=== PATIENT | male | born 1975 | race Caucasian/White ===

== ENCOUNTER 2018-11-04 12:52 | Day surgery (SDC) | payer OTHER, BC ==
[2018-11-04] MEDS ORDERED: ceFAZolin 1GM INJ (J0690 PER 500MG) As Ordered (13:16)
[2018-11-04] MEDS ORDERED: ceFAZolin 2 GM/D5W 50 ML IV BAG (J0690 PER 500MG) As Ordered (13:16)
[2018-11-04] MEDS: GABAPENTIN 300 MG CAP PO ×2 (13:43→20:18)
[2018-11-04] MEDS: PERCOCET 5MG/325MG TAB PO ×2 (13:44→21:34)
[2018-11-04] MEDS: CelecoXIB 400 MG CAP PO (13:44)
[2018-11-04] MEDS: ceFAZolin SOD 1 GM in D5W MINI-BAG PLUS 50 ML IV (15:45)
[2018-11-04] MEDS ORDERED: fentaNYL 250 MCG/5 ML INJECTION (J3010) As Ordered (16:09)
[2018-11-04] MEDS ORDERED: GLYCOPYRROLATE INJ 0.2 MG/ML 2 ML VIAL As Ordered (16:09)
[2018-11-04] MEDS ORDERED: dexameTHASONE 4 MG/ML 1ML VIAL (J1100) As Ordered (16:09)
[2018-11-04] MEDS ORDERED: LIDOCAINE 2% INJ 100 MG/5 ML SDV (FOR ANES.) As Ordered (16:09)
[2018-11-04] MEDS ORDERED: METOCLOPRAMIDE INJ 10MG/2ML VIAL (J2765) As Ordered (16:10)
[2018-11-04] MEDS ORDERED: PROPOFOL 200 MG/20 ML VIAL As Ordered ×2 (16:10→17:14)
[2018-11-04] MEDS ORDERED: NEOSTIGMINE 10 MG/10 ML VIAL (J2710) As Ordered (16:10)
[2018-11-04] MEDS ORDERED: ONDANSETRON 4MG/2ML VIAL (J2405) As Ordered (16:10)
[2018-11-04] MEDS ORDERED: MIDAZOLAM INJ 2 MG/2 ML VIAL (J2250) As Ordered (16:10)
[2018-11-04] MEDS ORDERED: ROCURONIUM BROMIDE 50 MG/5 ML VIAL As Ordered (16:10)
[2018-11-04] MEDS: THROMBIN SOLN 20,000 UNITS KIT As Ordered (16:23)
[2018-11-04] MEDS: BUPIVACAINE/EPIN 0.5% 30 ML VIAL As Ordered (16:23)
[2018-11-04] MEDS: BACITRACIN PWD 50,000 UNITS VIAL As Ordered (16:23)
[2018-11-04] MEDS ORDERED: fentaNYL 100 MCG/2 ML INJECTION (J3010) As Ordered (17:13)
[2018-11-04] MEDS ORDERED: fentaNYL 100 MCG/2 ML INJECTION (J3010) IV (18:15)
[2018-11-04] MEDS ORDERED: METOCLOPRAMIDE INJ 10MG/2ML VIAL (J2765) IV (18:15)
[2018-11-04] MEDS ORDERED: LR 1,000 ML IV (18:15)
[2018-11-04] MEDS ORDERED: PERCOCET 5MG/325MG TAB PO ×2 (18:15)
[2018-11-04] MEDS ORDERED: ONDANSETRON 4MG/2ML VIAL (J2405) IV (18:15)
[2018-11-04] MEDS ORDERED: PROMETHAZINE INJ 25 MG/ML VIAL (J2550) IV (18:15)
[2018-11-04] MEDS ORDERED: MEPERIDINE INJ 25 MG/ML VIAL (J2175) IV (18:15)
[2018-11-04] MEDS ORDERED: D5W/LR 1,000 ML IV (18:15)
[2018-11-04] MEDS ORDERED: HYDROMORPHONE HCL 0.5 MG/ 0.5 ML SYRINGE (J1170 PER 1) IV (18:30)
[2018-11-04] MEDS ORDERED: ACETAMINOPHEN TAB 650MG DOSE (2X325MG) PO (18:30)
[2018-11-04] MEDS ORDERED: NORTRIPTYLINE 10 MG CAP PO (18:30)
[2018-11-05] MEDS: GABAPENTIN 300 MG CAP PO (09:07)
[2018-11-05] MEDS: CelecoXIB 400 MG CAP PO (09:07)
[2018-11-05] MEDS: PERCOCET 5MG/325MG TAB PO (10:29)
== END 2018-11-05 10:40 | disposition home or self-care (01) ==
LOC: M SDC 12:52 → M MS5PR 18:55
DX: M51.26 Other intervertebral disc displacement, lumbar region (principal); M47.26 Other spondylosis with radiculopathy, lumbar region; Z79.899 Other long term (current) drug therapy
CPT/HCPCS: 63030

== ENCOUNTER → 2019-01-13 | Outpatient (REF) | payer OTHER ==
[~2019-01-13] MED LIST: GABA-843 PO; IBUPOTC PO
[2019-01-13 17:39] LABS: INR 0.98; PROTHROMBIN TIME 13.1 SECONDS (12.1-14.4)
[2019-01-13 17:40] LABS: PARTIAL THROMBOPLASTIN TIME 28.6 SECONDS (25.4-37.6)
== END ==
LOC: M LABDRAW1 16:32
PROVIDERS: ATTEND Physical Medicine & Rehabilitation
DX: D69.1 Qualitative platelet defects (principal); Z79.01 Long term (current) use of anticoagulants

== ENCOUNTER → 2019-02-15 | Outpatient (REF) | payer OTHER ==
[2019-02-15 14:21] LABS: BLOOD UREA NITROGEN 33 MG/DL (7-18); CREATININE FOR GFR 1.08 MG/DL (0.70-1.30); GLOMERULAR FILTRATION RATE > 60.0 (>60)
== END ==
LOC: M LABDRAW1 12:54
PROVIDERS: ATTEND Physical Medicine & Rehabilitation
DX: M47.814 Spondylosis without myelopathy or radiculopathy, thoracic region (principal)

== ENCOUNTER 2019-05-11 11:18 | Day surgery (SDC) | payer OTHER ==
--- NOTE | 2019-05-02 17:05 | HPE ---
DATE OF ANTICIPATED ADMISSION: 05/11/2019 ATTENDING PHYSICIAN: Dr. Min Shetty CHIEF COMPLAINT: Low back pain with right lower extremity radiculopathy. HISTORY: The patient is a 43-year-old male with progressively worsening low back pain with right-sided lower extremity radiculopathy. The patient has failed to improve with conservative measures. He continues to have symptoms with weightbearing activities and activities of daily living. The patient has consented for an elective right L4-[address] Shetty for his continued symptoms. CURRENT MEDICATIONS: - gabapentin 600 mg twice daily - naproxen 500 mg twice daily ALLERGIES: There are no known drug allergies. CHRONIC MEDICAL CONDITIONS: None. PREVIOUS SURGERIES: Left knee arthroscopy. Oral maxillary surgery. Right L4-5 microdiscectomy. SOCIAL HISTORY: The patient does not use tobacco products and rarely uses alcohol. FAMILY HISTORY: Noncontributory. REVIEW OF SYSTEMS: The patient denies fevers, chills, nausea, vomiting or diarrhea. Denies chest pain, shortness of breath, lightheadedness, dizziness, headaches or abdominal pain. He denies any recent upper respiratory or urinary tract infection symptoms. He continues to have low back pain with right-sided radiculopathy with weightbearing activities and activities of daily living. PHYSICAL EXAMINATION: Well-nourished, well-developed male who appears to be in no apparent distress. He is alert, oriented and cooperative. Mood and affect are appropriate. Vital signs: Height 74 inches, weight 225.4 pounds, temperature 97.2, blood pressure 130/95, heart rate 76, respirations 16. Neck: Supple without lymphadenopathy. Heart: Regular rate and rhythm. Lungs: Clear to auscultation bilaterally. Abdomen: Soft, nontender to palpation. Bowel sounds are present. Musculoskeletal: Low back exhibits no gross abnormalities. There is no real tenderness to palpation. Straight leg raise on the right side is positive, but there are no focal motor deficits. He does appreciate light touch on both sides. Reflex absent at the ankle on the right and 1+ at the ankle on the left with trace reflexes at knees bilaterally. MRI from December 2018 reveals mild to moderate spondylosis of the lumbar spine. There is stable to moderate to large size disc protrusion at L4-5. This is status post right-sided laminectomy at the L4-5 level for decompression of moderate canal stenosis. There may be a small hematoma/seroma with likely hemosiderin. Elsewhere there is multilevel mild canal stenosis with disc bulges and mild neural foraminal narrowing. IMPRESSION: Recurrent disc herniation at L4-5 on the right side producing pain into the right lower extremity. PLAN: The patient has consented for an elective L4-[address] Shetty for his continued symptoms. The patient will stop taking his naproxen 5 days prior to surgery and understands he may take his gabapentin the morning of surgery with a small sip of water. DOMONIQUE
[~2019-05-11] VITALS: Ht 188 cm; Wt 99.7 kg
[~2019-05-11 11:18] MED LIST changes: +CelecoXIB (CeleBREX) 100 MG CAP PO ONE; +GABAPENTIN 300 MG CAP PO ONE; +LIDOCAINE 1% MDV 20ML VIAL SQ PRN; +LIDOCAINE 2% INJ 100 MG/5 ML SDV (FOR ANES.) As Ordered ONE; +LR 1,000 ML IV ONE; +MIDAZOLAM INJ 2 MG/2 ML VIAL (J2250) As Ordered ONE; +NAPR-885 PO; +PERCOCET 5MG/325MG TAB PO ONE; +PROPOFOL 200 MG/20 ML VIAL As Ordered ONE; +ROCURONIUM BROMIDE 50 MG/5 ML VIAL As Ordered ONE; +fentaNYL 250 MCG/5 ML INJECTION (J3010) As Ordered ONE
[2019-05-11] MEDS ORDERED: THROMBIN SOLN 20,000 UNITS KIT As Ordered ONE (12:17)
[2019-05-11] MEDS ORDERED: TRANEXAMIC ACID 100 MG/ML 10ML VIAL As Ordered ONE (12:17)
[2019-05-11] MEDS ORDERED: EPINEPHrine INJ 1 MG/ML 1ML AMP As Ordered ONE (12:18)
[2019-05-11] MEDS ORDERED: BUPIVACAINE HCL 0.25% 30 ML VIAL As Ordered ONE ×2 (12:18→16:41)
[2019-05-11] MEDS ORDERED: BUPIVACAINE HCL 0.5% 30 ML VIAL As Ordered ONE (12:18)
[2019-05-11] MEDS ORDERED: BACITRACIN PWD 50,000 UNITS VIAL As Ordered ONE (12:18)
[2019-05-11] MEDS ORDERED: BUPIVACAINE LIPOSOME/PF 1.3% 20ML VIAL (13.3MG/ML)(EXPAREL)(C9290 PER1MG) As Ordered ONE ×2 (12:18→16:41)
[2019-05-11] MEDS ORDERED: BUPIVACAINE/EPIN 0.5% 30 ML VIAL As Ordered ONE (13:42)
[2019-05-11] MEDS ORDERED: ceFAZolin 2 GM/D5W 50 ML IV BAG (J0690 PER 500MG) As Ordered ONE (14:01)
[2019-05-11] MEDS ORDERED: NEOSTIGMINE 10 MG/10 ML VIAL (J2710) As Ordered ONE (16:49)
[2019-05-11] MEDS ORDERED: GLYCOPYRROLATE INJ 0.2 MG/ML 2 ML VIAL As Ordered ONE (16:49)
[2019-05-11] MEDS ORDERED: ACETAMINOPHEN TAB 650MG DOSE (2X325MG) PO PRN (17:30)
[2019-05-11] MEDS ORDERED: PROMETHAZINE INJ 25 MG/ML VIAL (J2550) IV PRN (17:30)
[2019-05-11] MEDS ORDERED: METOCLOPRAMIDE INJ 10MG/2ML VIAL (J2765) IV PRN (17:30)
[2019-05-11] MEDS ORDERED: LR 1,000 ML IV SCH ×2 (17:30)
[2019-05-11] MEDS ORDERED: PERCOCET 5MG/325MG TAB PO PRN (17:30)
[2019-05-11] MEDS ORDERED: fentaNYL 100 MCG/2 ML INJECTION (J3010) IV PRN (17:30)
[2019-05-11] MEDS ORDERED: oxyCODONE 5MG TAB PO PRN (17:30)
[2019-05-11] MEDS ORDERED: HYDROMORPHONE HCL 0.5 MG/ 0.5 ML SYRINGE (J1170 PER 1) IV PRN ×2 (17:45)
[2019-05-11 18:33] VITALS: BP 147/67
--- NOTE | 2019-05-11 18:57 | REP ---
Clinical: Localizing for back surgery. Technique: Portable cross-table view of the lumbosacral spine. Findings: Probe of the up posterior approach at the L4-5 interspinous level. Electronically Signed by Kaden Mrar MD 05/11/2019 06:48 P
[2019-05-11 19:13] VITALS: BP 130/69
[2019-05-11] MEDS ORDERED: ONDANSETRON 4MG/2ML VIAL (J2405) IV PRN (19:45)
[2019-05-11 20:13] VITALS: BP 162/84
[2019-05-11] MEDS: GABAPENTIN 300 MG CAP PO SCH (20:31)
[2019-05-11 21:13] VITALS: BP 145/80
[2019-05-11 22:13] VITALS: BP 139/71
[2019-05-11 23:13] VITALS: BP 143/82
[2019-05-12] MEDS: PERCOCET 5MG/325MG TAB PO PRN ×2 (00:43→08:49)
[2019-05-12 02:00] VITALS: BP 134/79
[2019-05-12 06:00] VITALS: BP 107/65
[2019-05-12] MEDS: GABAPENTIN 300 MG CAP PO SCH (08:48)
[2019-05-12] MEDS ORDERED: METAMUCIL (PSYLLIUM) PACKET PO SCH (09:00)
[2019-05-12] MEDS ORDERED: CelecoXIB (CeleBREX) 100 MG CAP PO ONE (09:00)
[2019-05-12 10:00] VITALS: BP 113/89
--- NOTE | 2019-05-13 18:49 | RO ---
DATE OF PROCEDURE: 05/11/2019 PREOPERATIVE DIAGNOSIS: Recurrent disc herniation right side at L4-5. POSTOPERATIVE DIAGNOSIS: Recurrent disc herniation right side at L4-5. PROCEDURE PERFORMED: Right L4-L5 laminotomy and repeat/redo diskectomy at L4-5. Significantly increased difficulty and time associated with this procedure due to the need to carefully dissect away scar tissue, etc. SURGEON: Min Shetty MD CAR SCRUBBER: ABDOUL Blackburn ANESTHESIA: General. ESTIMATED BLOOD LOSS: Less than 40 ml replaced with crystalloid. COMPLICATIONS: None. INDICATIONS: Mr. Kolb is a 43-year-old male who had a microdiskectomy in October time frame for a large disk herniation. Despite removal of a considerable amount of disk material, the patient had a recurrence of symptoms and that has persisted and now elects for operative intervention. Consent reviewed in detail including a blanche discussion, the pathology involved, the procedure proposed, alternatives including doing nothing and risks including but not limited to pain, failure, need for more surgery, recurrence or some other problem. The patient agrees to proceed. OPERATIVE COURSE: Identified in holding area. Site and side verified. Brought to the operating room, positioned on the Cortes frame for exposure of the lumbar spine. Axillary rolls utilized, knee slightly flexed. I stood on the patient's right, Mr. Gandhi on the left side. He was prepped and draped in the usual fashion. Time-out accomplished. Next, the old incision was outlined with a marking pen, infiltrated with quarter Marcaine with epinephrine. New incision was approximately three fingerbreadths and extended a bit longer than the previous incision. Dissection continued through the scarred fatty tissues to the posterior lumbar fascia which was also scarred down. I reflected the posterior lumbar fascia off of the spinous processes of 4 and 5 to allow exposure of the 4-5 interspace. Lamina of 4 was identified. Lamina 5 was identified. 4-5 facet complexes identified. Next, I used sharp blade to further thin the some of the scar tissue that scarred down to the dura. Next, we brought in the operating microscope which was thoroughly draped at this time and I utilized the high speed bur to drill away L4 lamina at its inferior portion extending more superiorly, thinning it out so that it could be flipped away with a curette and from the thecal sac. The dissection continued. We took about 1.5 bur widths of the inferior facet, 4 on the right side as well as the superior facet of 5 and crossed the lamina 5. Next, I was able to carefully elevate scar tissue and the traversing nerve root and with some meticulous dissection exposed disk herniation using a Chambers-Jose. Disk material seemed to the subligamentous. I suspect some portions of the cartilaginous endplate present in it is relatively hard large disk herniation. Next, I was able to free it with a Chambers-Jose and extract it with a Doan pituitary as well as regular pituitaries. I did explore the disk space, removing additional small amount of disk material. Next, once this was accomplished I observed the wound. No active bleeding, irrigation was accomplished. Thrombin Gelfoam was utilized and removed at the conclusion of the case. All retractors were removed. Skin anesthetized using Exparel solution. Wound closed with interrupted stitch and dermal stitches. Pernio dressing applied. The patient log-rolled to hospital bed, moved to recovery in good condition. For further details please refer to the medical record. ADDENDUM: (Dictated 05/13/2019 at 1:35 p.m.) Addendum to my operative note. Mr. Gandhi participated in the entirety of this case from positioning preoperatively through the termination of case at the conclusion. Through the microscope, Mr. Gandhi utilized the left-sided oculars and was able to help retraction and exposure using the appropriate Rad retractors and suction device so that I could safely expose. Oksana was instrumental in implementing some of the local anesthetic as well, and was present again throughout the entirety of the case participating.
== END 2019-05-12 10:55 | disposition home or self-care (01) ==
LOC: M OR 11:18 → M SDC 11:18 → UNDOADMIN 11:18 → M MS5PR 18:20 → M OR 18:20 → UNDODISIN 05-12 10:55 → M SDC 05-12 10:55
PROVIDERS: ATTEND Orthopaedic Surgery
DX: M51.26 Other intervertebral disc displacement, lumbar region (principal); Z79.899 Other long term (current) drug therapy
CPT/HCPCS: 36415; 63030; 76000; 86850; 86900; 86901; 88304; 96374; C9290; J0690; J2250; J2405; J2710; J2765; J3010

== ENCOUNTER → 2019-10-25 | Outpatient (REF) | payer OTHER ==
[~2019-10-25] MED LIST changes: -CelecoXIB (CeleBREX) 100 MG CAP PO ONE; -GABAPENTIN 300 MG CAP PO ONE; -LIDOCAINE 1% MDV 20ML VIAL SQ PRN; -LIDOCAINE 2% INJ 100 MG/5 ML SDV (FOR ANES.) As Ordered ONE; -LR 1,000 ML IV ONE; -MIDAZOLAM INJ 2 MG/2 ML VIAL (J2250) As Ordered ONE; -PERCOCET 5MG/325MG TAB PO ONE; -PROPOFOL 200 MG/20 ML VIAL As Ordered ONE; -ROCURONIUM BROMIDE 50 MG/5 ML VIAL As Ordered ONE; -fentaNYL 250 MCG/5 ML INJECTION (J3010) As Ordered ONE
[2019-10-25 12:09] LABS: BLOOD UREA NITROGEN 19 MG/DL (7-18); CREATININE FOR GFR 1.23 MG/DL (0.70-1.30); GLOMERULAR FILTRATION RATE > 60.0 (>60)
== END ==
LOC: M LABDRAW1 09:42
PROVIDERS: ATTEND Orthopaedic Surgery
DX: Z01.818 Encounter for other preprocedural examination (principal); M51.26 Other intervertebral disc displacement, lumbar region; M47.817 Spondylosis without myelopathy or radiculopathy, lumbosacral region

== ENCOUNTER → 2019-12-23 | Outpatient (REF) | payer OTHER ==
[2019-12-23 12:41] LABS: PLATELET COUNT, AUTOMATED 272 10^3/uL (150-450)
[2019-12-23 13:03] LABS: INR 1.1; PROTHROMBIN TIME 13.9 SECONDS (11.8-14.0)
[2019-12-23 13:46] LABS: COLLAGEN EPINEPHRINE 93 SECONDS (74-162)
== END ==
LOC: M LABDRAW1 11:53
PROVIDERS: ATTEND Physician Assistant
DX: Z01.812 Encounter for preprocedural laboratory examination (principal); M54.16 Radiculopathy, lumbar region

== ENCOUNTER → 2020-04-20 | Outpatient (CLI) | payer OTHER | LOC: M LABSMTC 10:48 | PROVIDERS: ATTEND Physical Medicine & Rehabilitation | DX: Z11.59 Encounter for screening for other viral diseases (principal) ==

== ENCOUNTER → 2025-10-25 | Outpatient (REF) ==
[~2025-10-25] MED LIST changes: +GABA-1172 PO; -GABA-843 PO
== END ==
LOC: M EMP 15:20
PROVIDERS: ATTEND Family Medicine
DX: Z01.89 Encounter for other specified special examinations (principal)